=== PATIENT | female | born 1955 | race Caucasian/White ===

== ENCOUNTER 2023-09-30 05:59 | Day surgery (SDC) | payer MEDICARE, BC ==
[2023-09-30] VITALS (16 sets, daily range): BP systolic 115–193; BP diastolic 69–94; PULSE 70–101; RESP 11–18; TEMP 98; O2SAT 93–100
[~2023-09-30] VITALS: Ht 170.2 cm; Wt 78.0 kg
[2023-09-30] MEDS: cefazolin 2gm/D5W 100mL 100 ML IV ONE (05:30)
[2023-09-30] MEDS: famotidine 20mg tablet PO ONE (05:30)
[~2023-09-30 05:59] MED LIST: ALBU8HFA; DULO60CA65 PO; FLUT16SP26 BOTHNARES; GABA600T13 PO; LISI40TA13 PO; PANT40TA54 PO; SUMA50TA17; ringers solution, lacted 1,000 ML IV SCH
[2023-09-30] MEDS: tranexamic acid inj. 1,000 MG in normal saline IV soln 100ML IV ONE (06:19)
[2023-09-30] MEDS ORDERED: oxymetazoline 15 ML nasal spray NS ONE ×2 (06:54→12:40)
[2023-09-30] MEDS ORDERED: mupirocin 2% ointment 22GM ONE (06:54)
[2023-09-30] MEDS ORDERED: triamcinolone acetonide 40mg/ml inj ONE (07:58)
[2023-09-30] MEDS ORDERED: sevoflurane 250ml liquid IH ONE (08:09)
[2023-09-30] MEDS ORDERED: fentaNYL/PF 50MCG/1 ML 2ML syringe ONE (08:12)
[2023-09-30] MEDS ORDERED: midazolam 1 mg/ML 2ml injection ONE (08:13)
[2023-09-30] MEDS ORDERED: propofol inj 20 ML IV ONE (08:16)
[2023-09-30] MEDS ORDERED: dexamethasone sod phosphate 4mg/ml inj. ONE (08:27)
[2023-09-30] MEDS ORDERED: ceFAZolin 1000mg inj ONE ×2 (08:40)
[2023-09-30] MEDS ORDERED: ePHEDrine 50MG/ML INJ. ONE (08:45)
[2023-09-30] MEDS ORDERED: meperidine/PF 25mg/ml syringe IV PRN ×2 (09:10)
[2023-09-30] MEDS ORDERED: morphine 2 MG/ML inj. syringe IV PRN (09:10)
[2023-09-30] MEDS ORDERED: ringers solution, lacted 1,000 ML IV SCH (09:10)
[2023-09-30] MEDS ORDERED: proCHLORperazine 10 MG/2 ml inj IV PRN (09:10)
[2023-09-30] MEDS ORDERED: ondansetron/PF 4mg/2ml inj IV PRN (09:10)
[2023-09-30] MEDS ORDERED: ondansetron/PF 4mg/2ml inj ONE (09:54)
[2023-09-30] MEDS: cocaine 4% topical solution 4ml bottle ONE (09:59)
[2023-09-30] MEDS: epiNEPHrine 1 mg/ml 30ml MDV ONE (10:00)
[2023-09-30] MEDS: LIDOcaine 1% w/EPI 1:100,000 inj. MDV 50 ML VIAL ONE (10:01)
[2023-09-30] MEDS: meperidine/PF 25mg/ml syringe IV PRN (10:28)
[2023-09-30] MEDS: morphine 4 MG/ML inj SYRINge IV PRN (10:53)
[2023-09-30] MEDS: labetalol 20mg/4ml (5mg/ml) syringe IV PRN (11:12)
[2023-09-30] MEDS: hydrALAZINE 20mg/ml inj. IV PRN (12:05)
[2023-09-30] MEDS: salt irrigation nasal spray 45 ML SPRAY NS PRN (15:39)
[2023-09-30] MEDS: bacitracin 15gm ointment TP ONE (15:39)
[2023-09-30] MEDS: tranexamic acid 100mg/ml inj. ONE (15:41)
== END 2023-09-30 12:53 | disposition home or self-care (01) ==
LOC: PAS 05:59 → EDBD 08:00 → PAS 12:53
PROVIDERS: ATTEND Otolaryngology
DX: J34.2 Deviated nasal septum (principal); J34.3 Hypertrophy of nasal turbinates; J32.9 Chronic sinusitis, unspecified; J34.89 Other specified disorders of nose and nasal sinuses; I10 Essential (primary) hypertension; J44.9 Chronic obstructive pulmonary disease, unspecified; G43.909 Migraine, unspecified, not intractable, without status migrainosus; F32.A Depression, unspecified; M79.7 Fibromyalgia; Z87.891 Personal history of nicotine dependence; Z79.899 Other long term (current) drug therapy; Z90.49 Acquired absence of other specified parts of digestive tract; Z90.710 Acquired absence of both cervix and uterus; Z98.51 Tubal ligation status; Z98.890 Other specified postprocedural states
CPT/HCPCS: 30140; 30520; 31240; 31254; 31267; 61782; 82948; 93005; A6402; J0171; J0360; J0690; J1100; J2175; J2250; J2270; J2405; J2704; J3010; J3301; J3490; J7030; J7050; J7120; Z7506; Z7508; Z7512; 88300; 88304; 88311; A4618; A6449; A7000